=== PATIENT | female | born 1970 | race American Indian/Alaskan Native ===

== ENCOUNTER 2017-10-04 10:50 | Emergency (ER) | payer MEDICARE ==
--- NOTE | 2017-10-04 15:42 | Emergency Department Report ---
ED Abdominal Pain HPI - General Chief Complaint: Abdominal Pain Stated Complaint: ABDOMINAL PAIN Time Seen by Provider: 10/04/17 12:45 Source: patient Mode of arrival: Ambulatory Limitations: No Limitations - History of Present Illness MD Complaint: abdominal pain -: Sudden, days(s) (7 DAYS AGO) Location: suprapubic Radiation: none Migration to: no migration Severity scale (0 -10): 3 Quality: cramping, fullness Consistency: constant Improves With: rest Worsens With: nothing Associated Symptoms: other (urinary frequency) - Related Data LMP (females 10-50): other (LMP 2008 secondary to hysterectomy) Previous Rx's Medication Instructions Recorded Last Taken Type Ciprofloxacin HCl [Cipro] 500 mg PO BID 10 Days #20 tablet 10/04/17 Unknown Rx Ondansetron [Zofran Odt] 4 mg PO Q8HR PRN #20 tab.rapdis 10/04/17 Unknown Rx Allergies Allergy/AdvReac Type Severity Reaction Status Date / Time sulfamethoxazole Allergy Unknown Verified 10/04/17 10:53 [From Bactrim] trimethoprim [From Bactrim] Allergy Unknown Verified 10/04/17 10:53 ED Review of Systems ROS: Stated complaint: ABDOMINAL PAIN Other details as noted in HPI Comment: All other systems reviewed and negative Constitutional: denies: chills, fever Eyes: denies: eye pain, eye discharge, vision change ENT: denies: ear pain, throat pain Respiratory: denies: cough, shortness of breath, wheezing Cardiovascular: denies: chest pain, palpitations Endocrine: no symptoms reported, increased thirst Gastrointestinal: abdominal pain. denies: nausea, diarrhea Genitourinary: denies: urgency, dysuria, discharge Musculoskeletal: denies: back pain, joint swelling, arthralgia Skin: denies: rash, lesions Neurological: denies: headache, weakness, paresthesias Psychiatric: denies: anxiety, depression Hematological/Lymphatic: denies: easy bleeding, easy bruising ED Past Medical Hx - Past Medical History Previous Medical History?: Yes Hx Hypertension: Yes Additional medical history: lupus. fibromyalgia. hypothyroid - Surgical History Past Surgical History?: Yes Hx Cholecystectomy: Yes Additional Surgical History: bilateral hip replacement. hysterectomy - Family History Family history: hypertension - Social History Smoking Status: Never Smoker Substance Use Type: None - Medications Home Medications: Home Medications Medication Instructions Recorded Confirmed Last Taken Type Ciprofloxacin HCl [Cipro] 500 mg PO BID 10 Days #20 tablet 10/04/17 Unknown Rx Ondansetron [Zofran Odt] 4 mg PO Q8HR PRN #20 tab.rapdis 10/04/17 Unknown Rx ED Physical Exam - General Limitations: No Limitations General appearance: alert, in no apparent distress - Head Head exam: Present: atraumatic, normocephalic - Eye Eye exam: Present: normal appearance - ENT ENT exam: Present: mucous membranes moist - Neck Neck exam: Present: normal inspection - Respiratory Respiratory exam: Present: normal lung sounds bilaterally. Absent: respiratory distress - Cardiovascular Cardiovascular Exam: Present: regular rate, normal rhythm. Absent: systolic murmur, diastolic murmur, rubs, gallop - GI/Abdominal GI/Abdominal exam: Present: soft, tenderness (suprapubic tenderness), normal bowel sounds - Extremities Exam Extremities exam: Present: normal inspection - Back Exam Back exam: Present: normal inspection - Neurological Exam Neurological exam: Present: alert, oriented X3 - Psychiatric Psychiatric exam: Present: normal affect, normal mood - Skin Skin exam: Present: warm, dry, intact, normal color. Absent: rash ED Course Vital Signs 10/04/17 10/04/17 10/04/17 10:54 14:48 15:00 Temperature 97.7 F Pulse Rate 59 L 66 62 Respiratory 16 16 18 Rate Blood Pressure 129/82 Blood Pressure 130/63 103/69 [Left] O2 Sat by Pulse 100 100 99 Oximetry 10/04/17 10/04/17 16:30 18:02 Temperature Pulse Rate 69 69 Respiratory 18 18 Rate Blood Pressure Blood Pressure 122/74 130/76 [Left] O2 Sat by Pulse 99 100 Oximetry - Reevaluation(s) Reevaluation #1: RESULTS WHEN THE PATIENT. PATIENT STABLE FOR DISCHARGE. 10/04/17 17:10 ED Medical Decision Making - Lab Data Result diagrams: 10/04/17 11:02 10/04/17 11:02 - Radiology Data Radiology results: report reviewed - Medical Decision Making 47-year-old female who presents to emergency room with suprapubic abdominal pain. ct Positive for enteritis. All results given to patient. - Differential Diagnosis gastroenteritis. UTI. Colitis. Critical care attestation.: If time is entered above; I have spent that time in minutes in the direct care of this critically ill patient, excluding procedure time. ED Disposition Clinical Impression: Abdominal pain, Gastroenteritis Disposition: DC-01 TO HOME OR SELFCARE Is pt being admited?: No Does the pt Need Aspirin: No Condition: Stable Instructions: Gastroenteritis (ED), Abdominal Pain (ED) Additional Instructions: Patient to follow up with primary care in 3-5 days. Patient to return to ER if condition worsens. Patient to take Tylenol or ibuprofen when necessary for pain patient increase water. Patient take meds as directed. Patient to rest. Patient brat diet Prescriptions: Ciprofloxacin HCl [Cipro] 500 mg PO BID 10 Days #20 tablet Ondansetron [Zofran Odt] 4 mg PO Q8HR PRN #20 tab.rapdis PRN Reason: Nausea And Vomiting Referrals: PRIMARY CARE, [Primary Care Provider] - 3-5 Days Forms: Work/School Release Form(ED) Time of Disposition: 17:16
[2017-10-04 16:24] LABS: Alanine Aminotransferase 40 units/L (7-56); Albumin 4.2 g/dL (3.9-5); BUN/Creatinine Ratio 31; Blood Urea Nitrogen 25 mg/dL (7-17); Calcium 9.6 mg/dL (8.4-10.2); Hemolysis Index 7
--- NOTE | 2017-10-04 16:43 | Cat Scan Report ---
FINAL REPORT EXAM: CT ABDOMEN PELVIS WO CON HISTORY: ABDOMEN PAIN TECHNIQUE: CT examination of the ABDOMEN without IV contrast CT examination of the PELVIS without IV contrast PRIORS: None. FINDINGS: Surgically absent gallbladder. Normal noncontrast appearance of the liver, adrenals, pancreas, and spleen. Normal caliber abdominal aorta and IVC. Normal-appearing kidneys. No proximal ureteral distention. No hydronephrosis. Mid and distal ureters are obscured by adjacent anatomy as well as metal artifact from bilateral hip arthroplasty. No retroperitoneal adenopathy. No evidence of mesenteric mass. Intact anterior abdominal wall. Normal-appearing stomach and duodenum. No small bowel distention in the abdomen and pelvis. Mid and lower pelvis obscured by metal artifact from bilateral hip arthroplasty. Urinary bladder and distal rectum obscured. No adnexal abnormality. Uterus not visualized. Normal visible portion of sigmoid colon. No gross ascites, free air, or colonic distention. Nonspecific prominence of fluid throughout the colon and proximal rectum may reflect diarrhea. There is also prominent fluid throughout the small bowel. No focal abnormality in the cecum and terminal ileum. Normal visible portion of the appendix. IMPRESSION: Prominent fluid in small bowel and colon may reflect enteritis. Prominent fluid in colon may be secondary to diarrhea
[2017-10-04 16:55] LABS: Red Blood Count 4.22 M/mm3 (3.65-5.03)
[2017-10-04 16:56] LABS: Basophils % (Auto) 1.3 % (0.0-1.8); Eosinophils % (Auto) 2.3 % (0.0-4.3); Hematocrit 39.4 % (30.3-42.9); Hemoglobin 13.2 gm/dl (10.1-14.3); Lymphocytes % (Auto) 39.4 % (13.4-35.0); Mean Corpuscular HGB Conc 34 % (30-34); Mean Corpuscular Hemoglobin 31 pg (28-32); Mean Corpuscular Volume 93 fl (79-97); Monocytes % (Auto) 9.9 % (0.0-7.3); Platelet Count 180 K/mm3 (140-440); Red Cell Distribution Width 13.9 % (13.2-15.2)
[2017-10-04 16:57] LABS: Eosinophils # (Auto) 0.1 K/mm3 (0.0-0.4); Lymphocytes # (Auto) 0.9 K/mm3 (1.2-5.4); Monocytes # (Auto) 0.2 K/mm3 (0.0-0.8)
[2017-10-04 16:58] LABS: Bilirubin,Urine Negative (Negative); Blood,Urine Negative (Negative); Color,Urine Yellow (Yellow); Protein,Urine <15 mg/dL mg/dL (Negative); Urobilinogen,Urine < 2.0 mg/dL (<2.0)
[2017-10-04 16:59] LABS: Mucus,Urine 1+ /HPF
[2017-10-04] MEDS ORDERED: TORADOL ONE (17:23)
[2017-10-04] MEDS ORDERED: TORADOL IM ONE (17:45)
[2017-10-04 18:03] VITALS: BP 130/76
== END 2017-10-04 18:01 | disposition home or self-care (01) ==
LOC: ED 10:50
DX: K52.9 Noninfective gastroenteritis and colitis, unspecified (principal); R10.9 Unspecified abdominal pain; I10 Essential (primary) hypertension
CPT/HCPCS: 36415; 74176; 80053; 81001; 82962; 85025; 96372; 99284; J1885

== ENCOUNTER 2017-10-19 05:14 | Emergency (ER) | payer MEDICARE ==
[2017-10-19 07:15] LABS: Basophils % (Auto) 0.5 % (0.0-1.8); Eosinophils % (Auto) 0.2 % (0.0-4.3); Hematocrit 38.3 % (30.3-42.9); Hemoglobin 12.9 gm/dl (10.1-14.3); Lymphocytes # (Auto) 0.8 K/mm3 (1.2-5.4); Lymphocytes % (Auto) 14.7 % (13.4-35.0); Mean Corpuscular HGB Conc 34 % (30-34); Mean Corpuscular Hemoglobin 31 pg (28-32); Mean Corpuscular Volume 93 fl (79-97); Monocytes # (Auto) 0.5 K/mm3 (0.0-0.8); Monocytes % (Auto) 8.2 % (0.0-7.3); Platelet Count 136 K/mm3 (140-440); Red Blood Count 4.11 M/mm3 (3.65-5.03); Red Cell Distribution Width 14.1 % (13.2-15.2)
[2017-10-19 07:16] LABS: Alanine Aminotransferase 22 units/L (7-56); Albumin 3.9 g/dL (3.9-5); BUN/Creatinine Ratio 23; Blood Urea Nitrogen 16 mg/dL (7-17); Calcium 9.2 mg/dL (8.4-10.2); Hemolysis Index 9
[2017-10-19] MEDS ORDERED: ZOFRAN IV ONE (07:47)
[2017-10-19] MEDS ORDERED: DILAUDID IV ONE ×2 (07:47→10:12)
[2017-10-19] MEDS ORDERED: TORADOL IV ONE (07:47)
[2017-10-19] MEDS ORDERED: PEPCID IV ONE (07:48)
--- NOTE | 2017-10-19 07:52 | Emergency Department Report ---
ED General Adult HPI - General Chief complaint: Pain General Stated complaint: BODYACHES Time Seen by Provider: 10/19/17 07:33 Source: patient Mode of arrival: Ambulatory Limitations: No Limitations - History of Present Illness Initial comments: 47-year-old female with a past medical history rheumatoid arthritis, hypertension, lupus, fibromyalgia, previous thyroidectomy, cholecystectomy, and hysterectomy, and chronic pain presents to the hospital complaining of pain all over 2 days. Patient having generalized moderate to severe pain, constant, not relieved with current meds. Patient feels like she is having swelling to her fingers and her toes. She complains of chills without documented fever. Urinary frequency 2 days without dysuria. Patient complains of occasional cough secondary to elevated pollen. Positive nausea without vomiting or diarrhea reported. Patient's compliant with current medication takes tramadol chronically for pain. Patient also complains of a "migraine headache" and is out of her Topamax that she typically takes for headaches. Patient does not have a primary care doctor since moving to the [place] area in July. She was recently here October 04 for abdominal complaints. She was treated for enteritis and prescribed Cipro which she completed. Patient states that she is on Synthroid and has had some recent thyroid hormone level abnormalities - Related Data Home Medications Medication Instructions Recorded Confirmed Last Taken Dicyclomine [Bentyl] 20 mg PO QID 10/19/17 10/19/17 Unknown Levothyroxine [Synthroid] 50 mcg PO QAM 10/19/17 10/19/17 Unknown Linaclotide [Linzess] 145 mcg PO QDAY 10/19/17 10/19/17 Unknown Losartan [Cozaar] 100 mg PO QDAY 10/19/17 10/19/17 Unknown Metoprolol Tartrate 25 mg PO BID 10/19/17 10/19/17 Unknown Montelukast [Singulair] 1 tab PO DAILY 10/19/17 10/19/17 Unknown amLODIPine [Norvasc] 5 mg PO DAILY 10/19/17 10/19/17 Unknown tiZANidine [Zanaflex] 4 mg PO BID 10/19/17 10/19/17 Unknown traMADol [Ultram 50 MG tab] 1 tab PO BID PRN 10/19/17 10/19/17 Unknown Previous Rx's Medication Instructions Recorded Last Taken Type Ondansetron [Zofran Odt] 4 mg PO Q8HR PRN #20 tab.rapdis 10/04/17 Unknown Rx HYDROcodone/APAP 5-325 [Martha 1 each PO Q6HR PRN #20 tablet 10/19/17 Unknown Rx 5/325] Ibuprofen [Motrin] 600 mg PO Q8H PRN #30 tablet 10/19/17 Unknown Rx Prednisone [predniSONE 10 mg 10 mg PO .TAPER #1 tab.ds.pk 10/19/17 Unknown Rx (6-Day Pack, 21 Tabs)] Allergies Allergy/AdvReac Type Severity Reaction Status Date / Time sulfamethoxazole Allergy Unknown Verified 10/04/17 10:53 [From Bactrim] trimethoprim [From Bactrim] Allergy Unknown Verified 10/04/17 10:53 ED Review of Systems ROS: Stated complaint: BODYACHES Other details as noted in HPI Comment: All other systems reviewed and negative ED Past Medical Hx - Past Medical History Hx Hypertension: Yes Hx Asthma: Yes (Rheumatoid) Additional medical history: lupus, Chronic Pain. fibromyalgia. hypothyroid - Surgical History Hx Cholecystectomy: Yes Additional Surgical History: bilateral hip replacement, Hernia Repair. hysterectomy - Social History Smoking Status: Never Smoker Substance Use Type: None - Medications Home Medications: Home Medications Medication Instructions Recorded Confirmed Last Taken Type Ondansetron [Zofran Odt] 4 mg PO Q8HR PRN #20 tab.rapdis 10/04/17 Unknown Rx Dicyclomine [Bentyl] 20 mg PO QID 10/19/17 10/19/17 Unknown History HYDROcodone/APAP 5-325 [Martha 1 each PO Q6HR PRN #20 tablet 10/19/17 Unknown Rx 5/325] Ibuprofen [Motrin] 600 mg PO Q8H PRN #30 tablet 10/19/17 Unknown Rx Levothyroxine [Synthroid] 50 mcg PO QAM 10/19/17 10/19/17 Unknown History Linaclotide [Linzess] 145 mcg PO QDAY 10/19/17 10/19/17 Unknown History Losartan [Cozaar] 100 mg PO QDAY 10/19/17 10/19/17 Unknown History Metoprolol Tartrate 25 mg PO BID 10/19/17 10/19/17 Unknown History Montelukast [Singulair] 1 tab PO DAILY 10/19/17 10/19/17 Unknown History Prednisone [predniSONE 10 mg 10 mg PO .TAPER #1 tab.ds.pk 10/19/17 Unknown Rx (6-Day Pack, 21 Tabs)] amLODIPine [Norvasc] 5 mg PO DAILY 10/19/17 10/19/17 Unknown History tiZANidine [Zanaflex] 4 mg PO BID 10/19/17 10/19/17 Unknown History traMADol [Ultram 50 MG tab] 1 tab PO BID PRN 10/19/17 10/19/17 Unknown History ED Physical Exam - General Limitations: No Limitations - Other Other exam information: General: No limitations, patient is alert in no acute distress Head exam: Atraumatic, normocephalic Eyes exam: Normal appearance, ENT: Moist mucous membrane, normal oropharynx Neck exam: Normal inspection, full range of motion Respiratory exam: Clear to auscultation bilateral, no wheezes, rales, crackles Cardiovascular: Normal rate and rhythm, normal heart sounds Abdomen: Soft, nondistended, mild lower abdominal tenderness, with normal bowel sounds, no rebound or guarding Extremity: Full range of motion, patient states to her fingers and toes, no significant swelling appreciated on exam. No warmth or erythema Back: Normal Inspection, full range of motion, no tenderness Neurologic: Alert, oriented x3, cranial nerves intact, no motor or sensory deficit Psychiatric: normal affect, normal mood Skin: Warm, dry, intact ED Course Vital Signs 10/19/17 10/19/17 10/19/17 06:28 08:10 08:15 Temperature 99 F Pulse Rate 90 Respiratory 16 Rate Blood Pressure 143/90 137/90 O2 Sat by Pulse 100 100 100 Oximetry 10/19/17 08:30 Temperature Pulse Rate Respiratory Rate Blood Pressure 143/87 O2 Sat by Pulse 100 Oximetry - Reevaluation(s) Reevaluation #1: 10/19/17 10:12 pain down to 5/10 after dialudid, zofran, solumedrol. Additional dilaudid given prior to d/c. no signs of sedation ED Medical Decision Making - Lab Data Result diagrams: 10/19/17 06:51 10/19/17 06:51 Lab Results 10/19/17 10/19/17 10/19/17 Range/Units 06:51 06:51 07:49 WBC 5.5 (4.5-11.0) K/mm3 RBC 4.11 (3.65-5.03) M/mm3 Hgb 12.9 (10.1-14.3) gm/dl Hct 38.3 (30.3-42.9) % MCV 93 (79-97) fl MCH 31 (28-32) pg MCHC 34 (30-34) % RDW 14.1 (13.2-15.2) % Plt Count 136 L (140-440) K/mm3 Lymph % (Auto) 14.7 (13.4-35.0) % Grady % (Auto) 8.2 H (0.0-7.3) % Eos % (Auto) 0.2 (0.0-4.3) % Baso % (Auto) 0.5 (0.0-1.8) % Lymph # 0.8 L (1.2-5.4) K/mm3 Grady # 0.5 (0.0-0.8) K/mm3 Eos # 0.0 (0.0-0.4) K/mm3 Baso # 0.0 (0.0-0.1) K/mm3 Seg Neutrophils % 76.4 H (40.0-70.0) % Seg Neutrophils # 4.2 (1.8-7.7) K/mm3 Sodium 141 (137-145) mmol/L Potassium 4.0 (3.6-5.0) mmol/L Chloride 103.0 (98-107) mmol/L Carbon Dioxide 27 (22-30) mmol/L Anion Gap 15 mmol/L BUN 16 (7-17) mg/dL Creatinine 0.7 (0.7-1.2) mg/dL Estimated GFR > 60 ml/min BUN/Creatinine Ratio 23 % Glucose 120 H (65-100) mg/dL Calcium 9.2 (8.4-10.2) mg/dL Total Bilirubin 0.70 (0.1-1.2) mg/dL AST 24 (5-40) units/L ALT 22 (7-56) units/L Alkaline Phosphatase 56 (35-129) units/L Total Protein 7.0 (6.3-8.2) g/dL Albumin 3.9 (3.9-5) g/dL Albumin/Globulin Ratio 1.3 % TSH 1.530 (0.270-4.200) mlU/mL Free T4 1.01 (0.76-1.46) ng/dL Urine Color (Yellow) Urine Turbidity (Clear) Urine pH (5.0-7.0) Ur Specific [place] (1.003-1.030) Urine Protein (Negative) mg/dL Urine Glucose (UA) (Negative) mg/dL Urine Ketones (Negative) mg/dL Urine Blood (Negative) Urine Nitrite (Negative) Urine Bilirubin (Negative) Urine Urobilinogen (<2.0) mg/dL Ur Leukocyte Esterase (Negative) Urine WBC (Auto) (0.0-6.0) /HPF Urine RBC (Auto) (0.0-6.0) /HPF U Epithel Cells (Auto) (0-13.0) /HPF Urine Bacteria (Auto) (Negative) /HPF Hyaline Casts /LPF 10/19/17 Range/Units 07:50 WBC (4.5-11.0) K/mm3 RBC (3.65-5.03) M/mm3 Hgb (10.1-14.3) gm/dl Hct (30.3-42.9) % MCV (79-97) fl MCH (28-32) pg MCHC (30-34) % RDW (13.2-15.2) % Plt Count (140-440) K/mm3 Lymph % (Auto) (13.4-35.0) % Grady % (Auto) (0.0-7.3) % Eos % (Auto) (0.0-4.3) % Baso % (Auto) (0.0-1.8) % Lymph # (1.2-5.4) K/mm3 Grady # (0.0-0.8) K/mm3 Eos # (0.0-0.4) K/mm3 Baso # (0.0-0.1) K/mm3 Seg Neutrophils % (40.0-70.0) % Seg Neutrophils # (1.8-7.7) K/mm3 Sodium (137-145) mmol/L Potassium (3.6-5.0) mmol/L Chloride (98-107) mmol/L Carbon Dioxide (22-30) mmol/L Anion Gap mmol/L BUN (7-17) mg/dL Creatinine (0.7-1.2) mg/dL Estimated GFR ml/min BUN/Creatinine Ratio % Glucose (65-100) mg/dL Calcium (8.4-10.2) mg/dL Total Bilirubin (0.1-1.2) mg/dL AST (5-40) units/L ALT (7-56) units/L Alkaline Phosphatase (35-129) units/L Total Protein (6.3-8.2) g/dL Albumin (3.9-5) g/dL Albumin/Globulin Ratio % TSH (0.270-4.200) mlU/mL Free T4 (0.76-1.46) ng/dL Urine Color Straw (Yellow) Urine Turbidity Clear (Clear) Urine pH 6.0 (5.0-7.0) Ur Specific [place] 1.009 (1.003-1.030) Urine Protein <15 mg/dl (Negative) mg/dL Urine Glucose (UA) Neg (Negative) mg/dL Urine Ketones Neg (Negative) mg/dL Urine Blood Neg (Negative) Urine Nitrite Neg (Negative) Urine Bilirubin Neg (Negative) Urine Urobilinogen < 2.0 (<2.0) mg/dL Ur Leukocyte Esterase Neg (Negative) Urine WBC (Auto) < 1.0 (0.0-6.0) /HPF Urine RBC (Auto) 1.0 (0.0-6.0) /HPF U Epithel Cells (Auto) 1.0 (0-13.0) /HPF Urine Bacteria (Auto) 1+ (Negative) /HPF Hyaline Casts 1 /LPF - Medical Decision Making Patient has multiple reasons for pain (rheumatoid arthritis, lupus, and fibomyalgia) and has a history of chronic pain with no local physician. Patient advised to find a table runner for follow-up and a primary care doctor. No acute lab urine abnormality identified at this time. She'll be treated with pain medication and steroids - Differential Diagnosis chronic pain, rheumatoid flare, lupus flare, fibromyalgia flare, UTI Critical Care Time: No Critical care attestation.: If time is entered above; I have spent that time in minutes in the direct care of this critically ill patient, excluding procedure time. ED Disposition Clinical Impression: Generalized pain, Lupus, Rheumatoid arthritis flare, Fibromyalgia, Chronic pain Disposition: TO HOME OR SELFCARE Is pt being admited?: No Does the pt Need Aspirin: No Condition: Stable Instructions: Rheumatoid Arthritis (ED), Chronic Pain (ED) Additional Instructions: Take the medication as prescribed. It is very important that you follow up with a primary care doctor and table runner for further evaluation and workup. Please return if symptoms worsen as indicated by the discharge instructions Prescriptions: HYDROcodone/APAP 5-325 [Martha 5/325] 1 each PO Q6HR PRN #20 tablet PRN Reason: Pain Ibuprofen [Motrin] 600 mg PO Q8H PRN #30 tablet PRN Reason: Pain Prednisone [predniSONE 10 mg (6-Day Pack, 21 Tabs)] 10 mg PO .TAPER #1 tab.ds.pk Referrals: TUTU DELACRUZ MD [Staff Physician] - 3-5 Days (Maintenance And Repair Worker) RAMO PARNELL MD [Referring] - 3-5 Days (Maintenance And Repair Worker) SUN FELIZ MD [Referring] - 3-5 Days (Maintenance And Repair Worker) [facility] [Provider Group] - 3-5 Days (Primary care clinic) AUBREY RANDOLPH JR, MD [Staff Physician] - 3-5 Days (Primary care doctor) Time of Disposition: 10:16
[2017-10-19 08:09] LABS: Bacteria,Urine 1+ /HPF (Negative); Bilirubin,Urine NEG (Negative); Blood,Urine NEG (Negative); Color,Urine Straw (Yellow); Hyaline Casts,Urine 1 /LPF; Protein,Urine <15 mg/dL mg/dL (Negative); Urobilinogen,Urine < 2.0 mg/dL (<2.0)
[2017-10-19 08:28] LABS: WBC,Urine < 1.0 /HPF (0.0-6.0)
[2017-10-19 08:30] LABS: Free T4 (Free Thyroxine) 1.01 ng/dL (0.76-1.46)
[2017-10-19 10:55] VITALS: BP 135/85
== END 2017-10-19 10:59 | disposition home or self-care (01) ==
LOC: ED 05:14
DX: M32.9 Systemic lupus erythematosus, unspecified (principal); M06.9 Rheumatoid arthritis, unspecified; M79.7 Fibromyalgia; I10 Essential (primary) hypertension; E03.9 Hypothyroidism, unspecified; Z96.643 Presence of artificial hip joint, bilateral; Z88.2 Allergy status to sulfonamides; Z90.49 Acquired absence of other specified parts of digestive tract
CPT/HCPCS: 36415; 80053; 81001; 84439; 84443; 85025; 96374; 96375; 96376; 99283; J1170; J1885; J2405; J2930

== ENCOUNTER 2017-11-07 10:20 | Emergency (ER) | payer MEDICARE ==
[2017-11-07 10:32] VITALS: BP 109/76
[2017-11-07 10:48] LABS: Basophils % (Auto) 0.8 % (0.0-1.8); Eosinophils % (Auto) 1.1 % (0.0-4.3); Hematocrit 39.6 % (30.3-42.9); Lymphocytes # (Auto) 0.2 K/mm3 (1.2-5.4); Lymphocytes % (Auto) 4.4 % (13.4-35.0); Mean Corpuscular HGB Conc 33 % (30-34); Mean Corpuscular Hemoglobin 31 pg (28-32); Mean Corpuscular Volume 93 fl (79-97); Monocytes # (Auto) 0.4 K/mm3 (0.0-0.8); Monocytes % (Auto) 10.6 % (0.0-7.3); Platelet Count 127 K/mm3 (140-440); Red Blood Count 4.25 M/mm3 (3.65-5.03); Red Cell Distribution Width 14.1 % (13.2-15.2)
[2017-11-07 11:10] LABS: BUN/Creatinine Ratio 21; Blood Urea Nitrogen 15 mg/dL (7-17); Calcium 9.5 mg/dL (8.4-10.2); Hemolysis Index 4
[2017-11-07 13:45] LABS: Bacteria,Urine 1+ /HPF (Negative); Bilirubin,Urine NEG (Negative); Blood,Urine NEG (Negative); Color,Urine Yellow (Yellow); Protein,Urine <15 mg/dL mg/dL (Negative); Urobilinogen,Urine < 2.0 mg/dL (<2.0)
--- NOTE | 2017-11-07 14:27 | XRay Report ---
ROUTINE CHEST, TWO VIEWS: HISTORY: Fever, congestion. The trachea, heart, mediastinal contour, lung bradley and bony thorax are unremarkable. IMPRESSION: Unremarkable chest x-ray.
[2017-11-07] MEDS ORDERED: DELTASONE PO ONE (14:58)
[2017-11-07] MEDS ORDERED: TORADOL IM ONE (14:58)
--- NOTE | 2017-11-07 14:58 | Emergency Department Report ---
HPI - General Chief Complaint: Pain General Time Seen by Provider: 11/07/17 12:54 - HPI HPI: 47-year-old female presents to the ED complaining of generalized body aching fever that started yesterday. She states she's speaking but did not sustain any fall trauma or injuries to body. Patient states mild sore throat and intermittent coughing. Patient states she took Motrin yesterday for fever and body aches. Patient states she is eating and drinking fluids normally. She did admit urinary frequency but denies abdominal pain, nausea vomiting, ED Past Medical Hx - Past Medical History Hx Hypertension: Yes Hx Asthma: Yes (Rheumatoid) Additional medical history: lupus, Chronic Pain. fibromyalgia. hypothyroid - Surgical History Hx Cholecystectomy: Yes Additional Surgical History: bilateral hip replacement, Hernia Repair. hysterectomy - Social History Smoking Status: Never Smoker Substance Use Type: None - Medications Home Medications: Home Medications Medication Instructions Recorded Confirmed Last Taken Type Ondansetron [Zofran Odt] 4 mg PO Q8HR PRN #20 tab.rapdis 10/04/17 Unknown Rx Dicyclomine [Bentyl] 20 mg PO QID 10/19/17 10/19/17 Unknown History HYDROcodone/APAP 5-325 [[place] 1 each PO Q6HR PRN #20 tablet 10/19/17 Unknown Rx 5/325] Ibuprofen [Motrin] 600 mg PO Q8H PRN #30 tablet 10/19/17 Unknown Rx Levothyroxine [Synthroid] 50 mcg PO QAM 10/19/17 10/19/17 Unknown History Linaclotide [Linzess] 145 mcg PO QDAY 10/19/17 10/19/17 Unknown History Losartan [Cozaar] 100 mg PO QDAY 10/19/17 10/19/17 Unknown History Metoprolol Tartrate 25 mg PO BID 10/19/17 10/19/17 Unknown History Montelukast [Singulair] 1 tab PO DAILY 10/19/17 10/19/17 Unknown History Prednisone [predniSONE 10 mg 10 mg PO .TAPER #1 tab.ds.pk 10/19/17 Unknown Rx (6-Day Pack, 21 Tabs)] amLODIPine [Norvasc] 5 mg PO DAILY 10/19/17 10/19/17 Unknown History tiZANidine [Zanaflex] 4 mg PO BID 10/19/17 10/19/17 Unknown History traMADol [Ultram 50 MG tab] 1 tab PO BID PRN 10/19/17 10/19/17 Unknown History Ciprofloxacin HCl [Ciprofloxacin 500 mg PO Q12HR #14 tab 11/07/17 Unknown Rx TAB] Ibuprofen [Motrin] 800 mg PO Q8HR PRN #30 tablet 11/07/17 Unknown Rx guaiFENesin [Mucinex] 600 mg PO BID #10 tab.er.12h 11/07/17 Unknown Rx ED Review of Systems ROS: Stated complaint: CHEST PAIN, BODY ACHES, HEADACHE, NAUSEA Other details as noted in HPI Constitutional: denies: chills, fever Eyes: denies: eye pain, eye discharge, vision change ENT: denies: ear pain, throat pain Respiratory: denies: cough, shortness of breath, wheezing Cardiovascular: denies: chest pain, palpitations Endocrine: no symptoms reported Gastrointestinal: denies: abdominal pain, nausea, diarrhea Genitourinary: denies: urgency, dysuria, discharge Musculoskeletal: denies: back pain, joint swelling, arthralgia Skin: denies: rash, lesions Neurological: denies: headache, weakness, paresthesias Psychiatric: denies: anxiety, depression Hematological/Lymphatic: denies: easy bleeding, easy bruising Physical Exam - Physical Exam Vital Signs: Vital Signs 11/07/17 11/07/17 10:27 12:51 Temperature 101.4 F H 99.9 F H Pulse Rate 86 Respiratory 18 Rate Blood Pressure 109/76 O2 Sat by Pulse 96 Oximetry Physical Exam: GENERAL: Alert and oriented x3, no apparent distress, Normal Gait, atraumatic. HEAD: Head is normocephalic and a-traumatic. NOSE: Nose symetrical, Nontender,Nares appeared normal. MOUTH:Mouth is well hydrated and without lesions. Tonsils nonerythematous or swollen, Uvula midline, Tongue not elevated. Mucous membranes are moist. Posterior pharynx clear, no exudate or lesions. Patent airways. NECK: Supple. Non edematous, No lymphadenopathy or thyromegaly. No C-spine tenderness LUNGS: Symetrical with respiration, No wheezing, no rales or crackles, CTAB. HEART: S1, S2 present, regular rate and rhythm without murmur, no rubs, no gallops. Non tender to palpation ABDOMEN: No organomegaly was noted,Positive bowel sounds, soft, and non- distended. Nontender to palpation on all Quadrants, NO CVA tenderness. BACK: Full range of motion, no spinal tenderness, nontender to palpation. NEUROLOGIC: The patient is cooperative with no focal neurologic deficits. Normal speech. Normal sensation in bilateral upper and lower extremities, SKIN: Warm and dry, No lesions, No ulceration or induration present. ED Course Vital Signs 11/07/17 11/07/17 10:27 12:51 Temperature 101.4 F H 99.9 F H Pulse Rate 86 Respiratory 18 Rate Blood Pressure 109/76 O2 Sat by Pulse 96 Oximetry ED Medical Decision Making - Lab Data Result diagrams: 11/07/17 10:35 11/07/17 10:35 - Radiology Data Radiology results: report reviewed, image reviewed cc: APOLINAR BLAKE MD Fluoro Time In Minutes: ROUTINE CHEST, TWO VIEWS: HISTORY: Fever, congestion. The trachea, heart, mediastinal contour, lung bradley and bony thorax are unremarkable. IMPRESSION: Unremarkable chest x-ray. Transcribed By: TTR Dictated By: JACOBY CHANDLER JR, MD Electronically Authenticated By: JACOBY CHANDLER JR, MD Signed Date/Time: 11/07/17 1418 - Medical Decision Making 47-year-old male presents with urinary tract infection/viral syndrome Fever resolved no fever tired to ED discharge. Chest x-ray shows no abnormalities, urinalysis urine test, CBC CMP all ordered. All labs within normal limits urinalysis positive for bacteria I discussed this finding with the patient Discussed continue Motrin as needed for fever and pain. Discussed increase fluids and diet intake. Discussed rest much needed. Discussed daily vitamin C for immune booster. Discussed follow-up with primary care physician in 3-5 days. Patient's mother verbally states she understands and will comply the following instructions and follow-up Vital signs stable. Patient is in no acute distress Critical care attestation.: If time is entered above; I have spent that time in minutes in the direct care of this critically ill patient, excluding procedure time. ED Disposition Clinical Impression: UTI (urinary tract infection) Qualifiers: Urinary tract infection type: acute cystitis Hematuria presence: without hematuria Qualified Code(s): N30.00 - Acute cystitis without hematuria Disposition: - TO HOME OR SELFCARE Is pt being admited?: No Does the pt Need Aspirin: No Condition: Stable Instructions: Urinary Tract Infection in Women (ED), Acute Pyelonephritis (ED) , Viral Syndrome (ED) Additional Instructions: Make sure to follow up with the primary care physician as discussed. Take all your medications as you've been prescribed. If you have any worsening symptoms or develop new symptoms please return to ED immediately. Prescriptions: Ciprofloxacin HCl [Ciprofloxacin TAB] 500 mg PO Q12HR #14 tab guaiFENesin [Mucinex] 600 mg PO BID #10 tab.er.12h Ibuprofen [Motrin] 800 mg PO Q8HR PRN #30 tablet PRN Reason: Pain Referrals: PRIMARY CARE, [Primary Care Provider] - 3-5 Days [facility] [Outside] - 3-5 Days [facility] [Outside] - 3-5 Days [facility] [Outside] - 3-5 Days Forms: Accompanied Note, Work/School Release Form(ED) Time of Disposition: 15:21
== END 2017-11-07 15:31 | disposition home or self-care (01) ==
LOC: ED 10:20
DX: N30.00 Acute cystitis without hematuria (principal); J45.909 Unspecified asthma, uncomplicated
CPT/HCPCS: 36415; 71046; 80048; 81001; 85025; 87116; 87430; 93005; 93010; 96372; 99284; J1885; J7512